=== PATIENT | male | born 1950 | race Caucasian/White ===

== ENCOUNTER 2022-03-29 08:44 | Inpatient (IN) | payer OTHER, MEDICARE ==
[~2022-03-29] VITALS: Ht 175.3 cm; Wt 63.5 kg
[2022-03-29] MEDS ORDERED: SODIUM CHLORIDE 0.9% 1,000 ML IV ONE (09:00)
[2022-03-29 10:27] LABS: BASOPHILS % 0.1 % (0.0-2.0); HEMATOCRIT. 37.1 % (42.0-52.0); HEMOGLOBIN. 12.5 g/dL (14.0-18.0); LYMPHOCYTES % 9.6 % (20.0-50.0); MEAN CORPUSCULAR HEMOGLOBIN 30.7 pg (28.0-32.0); MEAN CORPUSCULAR VOLUME 90.8 fL (80.0-94.0); MEAN PLATELET VOLUME 8.8 fl (7.4-10.4); NEUTROPHILS % 83.3 % (40.0-76.0); PLATELET 167 x1000/uL (130-400); RED BLOOD CELL COUNT 4.08 mill/uL (4.7-6.1); RED CELL DISTRIBUTION WIDTH 13.1 % (11.6-14.6)
[2022-03-29 10:30] LABS: CHLORIDE 92 mEq/L (98-107)
[2022-03-29] MEDS ORDERED: VANCOMYCIN 1G PREMIX 200 ML IV ONE (11:00)
[2022-03-29] MEDS ORDERED: PIPERACILLIN/TAZ 3.375G PREMIX 50 ML IV ONE (11:00)
[2022-03-29] MEDS ORDERED: SODIUM CHLORIDE 0.9% 1000ML BAG (SEPSIS BOLUS) IV ONE (11:00)
[2022-03-29] MEDS ORDERED: IOHEXOL-350 100 ML BOTTLE ONE (14:05)
[2022-03-29 15:07] LABS: CLARITY URINE CLOUDY (CLEAR); COLOR URINE YELLOW (YELLOW); KETONES URINE 1+ (NEGATIVE); LEUKOCYTE ESTERASE URINE NEGATIVE (NEGATIVE); NITRITE URINE NEGATIVE (NEGATIVE); OCCULT BLOOD URINE NEGATIVE (NEGATIVE); PROTEIN URINE 1+ (NEGATIVE); SPECIFIC GRAVITY URINE 1.022 (1.005-1.030)
[2022-03-29 15:12] VITALS: BP 106/61
[2022-03-29 15:15] VITALS: BP 106/61
[2022-03-29] MEDS ORDERED: ACETAMINOPHEN 325MG TABLET PO PRN (16:45)
[2022-03-29] MEDS: SODIUM CHLORIDE 0.9% 1,000 ML IV SCH (17:10)
[2022-03-29 20:00] VITALS: BP 123/90
[2022-03-29] MEDS: ZOLPIDEM TARTRATE 5MG TABLET PO PRN (21:38)
[2022-03-29] MEDS: VANCOMYCIN 750MG PREMIX 150 ML IV SCH (22:42)
[2022-03-30] VITALS: BP 112/83
[2022-03-30] MEDS: PIPERACILLIN/TAZOBACTAM 3.375 G in DEXTROSE 5% WATER 50 ML IV SCH ×2 (00:23→14:26)
[2022-03-30 04:00] VITALS: BP 100/50
[2022-03-30 05:31] LABS: BASOPHILS % 0.3 % (0.0-2.0); EOSINOPHILS % 0.1 % (0.0-5.0); HEMATOCRIT. 32.8 % (42.0-52.0); HEMOGLOBIN. 11.5 g/dL (14.0-18.0); LYMPHOCYTES % 21.1 % (20.0-50.0); MEAN CORPUSCULAR VOLUME 91.1 fL (80.0-94.0); MEAN PLATELET VOLUME 8.1 fl (7.4-10.4); MONOCYTES % 13.1 % (2.0-8.0); NEUTROPHILS % 65.4 % (40.0-76.0); PLATELET 145 x1000/uL (130-400); RED CELL DISTRIBUTION WIDTH 12.8 % (11.6-14.6)
[2022-03-30] MEDS: SODIUM CHLORIDE 0.9% 1,000 ML IV SCH (06:30)
[2022-03-30 08:00] VITALS: BP 112/77
[2022-03-30] MEDS: ASPIRIN 81MG TABLET PO SCH (09:03)
[2022-03-30] MEDS: VANCOMYCIN 750MG PREMIX 150 ML IV SCH ×2 (09:12→21:05)
[2022-03-30 09:51] LABS: CHLORIDE 96 mEq/L (98-107)
[2022-03-30 12:00] VITALS: BP 135/57
[2022-03-30 16:00] VITALS: BP 118/91
[2022-03-30] MEDS ORDERED: POTASSIUM CHLORIDE 20MEQ TABLET SR PO NR (16:45)
[2022-03-30 20:00] VITALS: BP_SYST 103; BP_SYST 110; BP_DIAS 66; BP_DIAS 70
[2022-03-30] MEDS: ZOLPIDEM TARTRATE 5MG TABLET PO PRN (21:09)
[2022-03-30 23:09] LABS: T4 FREE 1.23 ng/dL (0.76-1.46)
[2022-03-31] VITALS (7 sets, daily range): BP systolic 105–140; BP diastolic 56–98
[2022-03-31] MEDS: SODIUM CHLORIDE 0.9% 1,000 ML IV SCH ×2 (02:24→08:45)
[2022-03-31] MEDS: ASPIRIN 81MG TABLET PO SCH (08:41)
[2022-03-31 10:45] LABS: CHLORIDE 101 mEq/L (98-107)
[2022-03-31] MEDS ORDERED: POTASSIUM CHLORIDE 20MEQ TABLET SR PO NR ×2 (13:43→16:00)
[2022-03-31] MEDS ORDERED: DIPHENHYDRAMINE 25MG CAPSULE PO PRN (14:00)
[2022-03-31] MEDS ORDERED: ASPI-1160 PO (16:07)
== END 2022-03-31 19:40 | disposition home or self-care (01) | DRG 872 ==
LOC: ER 09:30 → 7WST 12:29 → EDBEDREQ 12:31 → EDBEDREQSVC 12:31 → EDBEDREQTM 12:31
PROVIDERS: ADMIT Internal Medicine; ATTEND Internal Medicine
PROC: 02HV33Z Insertion of Infusion Device into Superior Vena Cava, Percutaneous Approach (ICD-10-PCS; principal; 2022-03-29)
PROC: B548ZZA Ultrasonography of Superior Vena Cava, Guidance (ICD-10-PCS; 2022-03-29)
DX: A41.9 Sepsis, unspecified organism (principal); I10 Essential (primary) hypertension; D64.9 Anemia, unspecified; E87.6 Hypokalemia; G90.8 Other disorders of autonomic nervous system; F12.90 Cannabis use, unspecified, uncomplicated
CPT/HCPCS: 36415; 36573; 71045; 71275; 80048; 80053; 80061; 80202; 81003; 83605; 84145; 84439; 84443; 84484; 85025; 93005; 93306; 93880; 97162; 99291; C1725; J2543; J3370; J7030; J7060; Q9967

== ENCOUNTER 2024-05-19 12:04 | Emergency (ER) | payer MEDICARE, OTHER ==
[~2024-05-19] VITALS: Ht 175.3 cm; Wt 65.0 kg
[~2024-05-19 12:04] MED LIST: ASPI-1160 PO
[2024-05-19 12:25] VITALS: O2SAT 96
[2024-05-19] MEDS: IBUPROFEN 600MG TABLET PO ONE (16:17)
[2024-05-19 16:20] VITALS: BP 140/88; PULSE 84; RESP 16; TEMP 36.94740; O2SAT 96
== END 2024-05-19 16:30 | disposition home or self-care (01) ==
LOC: ER 12:04
DX: S02.2XXA Fracture of nasal bones, initial encounter for closed fracture (principal); I10 Essential (primary) hypertension; F12.10 Cannabis abuse, uncomplicated; M70.22 Olecranon bursitis, left elbow; Z79.82 Long term (current) use of aspirin; X58.XXXA Exposure to other specified factors, initial encounter; Y93.89 Activity, other specified; Y92.89 Other specified places as the place of occurrence of the external cause; Y99.8 Other external cause status
CPT/HCPCS: 70486; 73080; 99284

== ENCOUNTER 2024-12-19 11:27 | Emergency (ER) | payer MEDICARE ==
[~2024-12-19] VITALS: Ht 175.3 cm; Wt 62.0 kg
[2024-12-19 11:29] VITALS: O2SAT 100
[2024-12-19] MEDS: TETANUS, DIPHTHERIA, PERTUSSIS VAC/PF 0.5ML (>10YR OLD) IM ONE (12:16)
[2024-12-19] MEDS: BACITRACIN ZINC OINT UDPKT TOP ONE (13:30)
[2024-12-19] MEDS ORDERED: ACET-2708 MT (13:39)
[2024-12-19 13:49] VITALS: BP 137/91; PULSE 63; RESP 12; TEMP 37; O2SAT 100
== END 2024-12-19 13:50 | disposition home or self-care (01) ==
LOC: ER 11:27
DX: S01.01XA Laceration without foreign body of scalp, initial encounter (principal); I10 Essential (primary) hypertension; F12.90 Cannabis use, unspecified, uncomplicated; R51.9 Headache, unspecified; Z96.659 Presence of unspecified artificial knee joint; W18.2XXA Fall in (into) shower or empty bathtub, initial encounter; Y93.89 Activity, other specified; Y92.89 Other specified places as the place of occurrence of the external cause; Y99.8 Other external cause status
CPT/HCPCS: 12001; 90471; 90715; 99285